=== PATIENT | male | born 1990 | race Two or more races ===

== ENCOUNTER 2024-10-09 10:13 | Emergency (ER) | payer OTHER, MEDICAID, SELFPAY ==
[2024-10-09 10:15] VITALS: BMI 33.6
[2024-10-09 10:22] VITALS: BP 132/78; PULSE 100; RESP 18; TEMP 37.3; O2SAT 94
--- NOTE | 2024-10-09 10:30 | EKG_ITS ---
[facility] Test Date: 2024-10-09 Pat Name: AURELIA GRIGGS Department: Room: - Gender: Male Cad Technician: : 1990 Requested By: Wilner Almanzar (JOSE G) Order Number: [id number] Reading MD: Wilner Almanzar (FAMILY MEDICINE PHYSICIAN ASSISTANT) Measurements Intervals [place] Rate: 104 P: 49 RI: 138 QRS: 33 QRSD: 92 T: 33 QT: 335 QTc: 441 Interpretive Statements SINUS TACHYCARDIA ABNORMAL RHYTHM ECG No previous ECG available for comparison /[id number]/[email or web address]/[id number]
--- NOTE | 2024-10-09 10:30 | XR_ITS ---
Examination: PA lateral chest 2 views Technique: Upright PA lateral chest 2 views Date and time: October 09, 2024 10:51 AM Comparison December 13, 2015 Indications: Chest pain today. Findings: Normal heart size. Lungs are clear. Osseous structures are intact Impression: No active disease
--- NOTE | 2024-10-09 10:30 | PD.EDRME ---
Rapid Medical Screening Exam RME Arrival date/time: 10/09/24 10:13 33-year-old male presents to the emergency dept today stating that he took his friend's Adderall yesterday patient reports took a total of 30 mg patient also reports he was drinking heavily last night. Patient reports that this time his chest pressure and anxiety Chief Complaint: General Adult/Misc Complain Vital signs: Vital Signs Temperature 99.1 F 10/09/24 10:22 Pulse Rate 100 10/09/24 10:22 Respiratory Rate 18 10/09/24 10:22 Blood Pressure 132/78 H 10/09/24 10:22 Pulse Oximetry (%) 94 L 10/09/24 10:22 Oxygen Delivery Method Room Air 10/09/24 10:22
[2024-10-09 10:57] LABS: Basophils % (Auto) 0 % (0-2.5); Eosinophils % (Auto) 0 % (0-10); Hematocrit 46.4 % (41.0-53.0); Hemoglobin 16.6 g/dL (13.5-16.0); Immature Granulocytes % (Auto) 1 % (0-0); Immature Granulocytes Auto 0.06 Thou/mm3 (0.00-0.00); Lymphocytes # (Auto) 2.1 Thou/mm3 (1.0-4.8); Lymphocytes % (Auto) 31 % (10-50); Mean Corpuscular HGB Conc 35.8 g/dl (31.0-37.0); Mean Corpuscular Hemoglobin 30.2 pg (25.0-35.0); Mean Corpuscular Volume 85 fL (80-100); Monocytes # (Auto) 0.6 Thou/mm3 (0.0-0.8); Monocytes % (Auto) 9 % (0-12); Neutrophils # (Auto) 3.9 Thou/mm3 (1.8-7.7); Neutrophils % (Auto) 59 % (37-80); Nucleated Red Blood Cell % 0 /100 WBC (0); Platelet Count 238 Thou/mm3 (140-440); RDW Standard Deviation 40.7 fL (35.1-43.9); Red Blood Count 5.49 Miln/mm3 (4.50-5.90); White Blood Count 6.7 Thou/mm3 (3.8-10.6)
[2024-10-09 11:13] LABS: Alanine Aminotransferase 33 U/L (10-49); Albumin, Serum 4.9 gm/dL (3.5-5.0); Albumin/Globulin Ratio 1.6 (1.2-2.2); Alkaline Phosphatase 105 U/L (46-116); Anion Gap 13 (7-16); Aspartate Amino Transferase 29 U/L (0-34); BUN/Creatinine Ratio 9 Ratio (12-20); Bilirubin,Total 0.4 mg/dL (0.3-1.2); Blood Urea Nitrogen 9 mg/dL (9-23); Calcium 9.6 mg/dL (8.3-10.6); Calcium (Corrected) 9.6 mg/dL (8.5-10.1); Chloride 104 mMol/L (98-107); Globulin 3.1 gm/dL (2.3-3.5); Glucose 111 mg/dL (74-106); Osmolality,Calculated 280 (275-295); Potassium 3.7 mMol/L (3.4-5.1); Sodium 141 mMol/L (136-145); Troponin I < 0.002 ng/mL (0.0-0.045); eGFR > 60 See Note
[2024-10-09 11:30] LABS: Amphetamine/Methamp Scrn,U Positive (Negative); Barbiturate Screen,Urine Negative (Negative); Benzodiazepines Screen,Urine Negative (Negative); Benzoylecgonine Screen, Ur Negative (Negative); Fentanyl Screen,Urine Negative (Negative); Opiate Screen,Urine Negative (Negative); THC Screen,Urine Negative (Negative)
--- NOTE | 2024-10-09 12:13 | PD.EDRME ---
Rapid Medical Screening Exam RME Arrival date/time: 10/09/24 10:13 10/09/24 10:13 33-year-old male presents to the emergency dept today stating that he took his friend's Adderall yesterday patient reports took a total of 30 mg patient also reports he was drinking heavily last night. Patient reports that this time his chest pressure and anxiety Chief Complaint: General Adult/Misc Complain Time Seen by Provider: 10/09/24 12:00 Vital signs: Vital Signs Temperature 99.1 F 10/09/24 10:22 Pulse Rate 100 10/09/24 10:22 Respiratory Rate 18 10/09/24 10:22 Blood Pressure 132/78 H 10/09/24 10:22 Pulse Oximetry (%) 94 L 10/09/24 10:22 Oxygen Delivery Method Room Air 10/09/24 10:22 RME Narrative: 10/09/24 10:13 33-year-old male presents to the emergency dept today stating that he took his friend's Adderall yesterday patient reports took a total of 30 mg patient also reports he was drinking heavily last night. Patient reports that this time his chest pressure and anxiety
--- NOTE | 2024-10-09 12:17 | PC.NURSE ---
no answer in lobby
--- NOTE | 2024-10-09 13:00 | PC.NURSE ---
no answer in lobby
--- NOTE | 2024-10-09 13:20 | PC.NURSE ---
no answer in lobby
== END 2024-10-09 13:30 | disposition left against medical advice (07) ==
PROVIDERS: Nurse Practitioner Primary Care; Emergency Provider Family Medicine; PCP Family Medicine
DX: R07.89 Other chest pain (principal); Z53.29 Procedure and treatment not carried out because of patient's decision for other reasons; F41.9 Anxiety disorder, unspecified
CPT/HCPCS: 36415; 71046; 80053; 80307; 84484; 85025; 99281